=== PATIENT | female | born 1990 | race Caucasian/White ===

== ENCOUNTER 2022-04-05 10:59 | Emergency (ER) | payer MEDICAID, SELFPAY ==
[2022-04-05 11:07] VITALS: BP 129/74; PULSE 86; TEMP 36.5; O2SAT 96; BMI 32.1
--- NOTE | 2022-04-05 11:24 | ED.GENADULT ---
HPI - General Adult General Chief complaint: Unspecified Complaint, Adult Stated complaint: Jaw pain Time Seen by Provider: 04/05/22 10:59 History of Present Illness HPI narrative: This 31-year-old female comes in reporting pain in her right lower jaw. This is been present for the past week. She does not report any fevers or upper respiratory symptoms. She does not have any injury event triggering this. She did have some dental work done prior to this and was hoping that it was not a dental issue because it is difficult according to her to get in for an appointment. Related Data Home Medications Medication Instructions Recorded Confirmed No Known Home Medications 04/05/22 04/05/22 Previous Rx's Medication Instructions Recorded ketorolac 10 mg tablet 10 mg PO Q8H 5 days #15 tabs 04/05/22 methylprednisolone 4 mg tablets in See Rx Instructions PO .COMPLEX 04/05/22 a dose pack (Medrol (Niall)) #21 ea Allergies Allergy/AdvReac Type Severity Reaction Status Date / Time No Known Drug Allergies Allergy Verified 04/05/22 11:10 Review of Systems Status of ROS: Reports: 10 or more systems reviewed and unremarkable except as noted in History and below Narrative: Constitutional: No fevers, no weight gain or loss. Eyes: No discharge. No vision changes. HENT: No congestion, no sore throat, no ear pain. Right lower jaw pain. Cardiovascular: No chest pain, no palpitations. Respiratory: No shortness of breath, no wheezes, no cough. Gastrointestinal: No abdominal pain, no vomiting, no diarrhea. Genitourinary: No dysuria, no hematuria. Musculoskeletal: Normal range of motion. Skin: No rashes, no pruritis. Neurological: No dizziness, weakness, sensory change, speech change. Endo/Heme/Allergies: No bruising or bleeding. No polydipsia. Pysch: no suicidality, no anxiety, no insomnia. All other systems reviewed and are negative. PFSH PFSH Social History Smoking Status: Current every day smoker What tobacco products do you use: cigarettes Smoking packs per day: 1 Smoking cigarettes per day: 20.0 Do you use any of these nicotine containing products: None Second hand tobacco smoke exposure: No How often do you have a drink containing alcohol: never How often do you have six or more drinks on one occasion: Never AUDIT-C Alcohol total score: 0 Non-prescribed substance use: marijuana (any form) Exam Narrative: Exam Narrative: Constitutional: Well-developed, well-nourished, no acute distress. HEENT: Normocephalic, atraumatic. Tympanic membranes appear normal bilaterally. Oropharynx appears normal. Fair dentition. There is some teeth missing in the lower row that were extracted. Her right most posterior tooth in the lower row has a large cavity that was repaired. Neck: Normal range of motion. Nontender. Supple. Heart: Regular. No murmurs. Normal rate. Intact distal pulses. Lungs: Clear to auscultation. No chest discomfort. No wheezes, rhonchi, or rales. Abdomen: Normal bowel sounds. Nontender. No rebound tenderness. Genitalia: Deferred. Back: No midline tenderness. Normal range of motion. Extremities: Normal range of motion. No injury. Skin: Intact. No rash. Warm. No erythema or pallor. Neurologic: No altered sensation. No weakness. Alert and oriented. Psychiatric: No suicidality. No anxiety or depression. No insomnia. Nursing notes and vitals signs are reviewed. Const: Vital Signs, click to edit/add: Vital Signs - 24 hr 04/05/22 11:07 Temperature 97.7 F Pulse Rate [Left P ulse Oximeter] 86 Blood Pressure [Ri ght Upper Arm] 129/74 Pulse Oximetry 96 Oxygen Delivery Me thod Room Air Course Vital Signs Vital signs: Initial Vital Signs Temperature 97.7 F 04/05/22 11:07 Temperature Source Temporal Artery Scan 04/05/22 11:07 Pulse Rate 86 04/05/22 11:07 Blood Pressure 129/74 04/05/22 11:07 Blood Pressure Mean 92 04/05/22 11:07 Blood Pressure Position Sitting 04/05/22 11:07 Pulse Oximetry 96 04/05/22 11:07 Oxygen Delivery Method 04/05/22 11:07 Vital Signs Temperature 97.7 F 04/05/22 11:07 Pulse Rate 86 04/05/22 11:07 Blood Pressure 129/74 04/05/22 11:07 Pulse Oximetry 96 04/05/22 11:07 Oxygen Delivery Method 04/05/22 11:07 Temperature 97.7 F 04/05/22 11:07 Pulse Rate 86 04/05/22 11:07 Blood Pressure 129/74 04/05/22 11:07 Pulse Oximetry 96 04/05/22 11:07 Oxygen Delivery Method 04/05/22 11:07 Medical Decision Making MDM Narrative Medical decision making narrative: This patient comes in reporting pain in her right lower jaw. She does not have sign of ear infection or pharyngitis. She does not have tenderness at the temporal mandibular joint. Most likely this is a pain related to dental issue. I advised her to follow-up with a dentist for further evaluation and treatment. She did receive a prescription for Toradol and Medrol Dosepak. Discharge Plan Discharge Clinical Impression: Pain, dental Patient Disposition: Home, Self-Care Condition: Stable Additional Instructions: Take medication as needed and indicated. Follow up with MD or return if worsening. Prescriptions: New ketorolac 10 mg tablet 10 mg PO Q8H 5 Days Qty: 15 0RF methylprednisolone [Medrol (Niall)] 4 mg tablets,dose pack See Rx Instructions .ROUTE .COMPLEX Qty: 21 0RF Rx Instructions: orally per package directions No Action No Known Home Medications Stand Alone Forms: [employer] Info Instructions
--- OUTSIDE RECORDS SUMMARY | 2022-04-05 11:41 | XMS_ITS | Clinical Summary ---
:1990 Author Organization [facility] [place] [address] Care Team Providers Name Role Phone Lisa Urena Primary Care Provider Allergies No known active allergies Medications No known medications Active Problems Problem Noted Date Moderate episode of recurrent major depressive disorde r 08/22/2015 Psychophysiological insomnia 08/22/2015 Tobacco abuse 04/21/2013 Gestational diabetes 08/17/2010 Overview: Noted 2008 Panic disorder without agoraphobia with moderate panic attacks 08/17/2010 Resolved Problems Problem Noted Date Resolved Date (infant) 08/18/2010 09/04/2012 Encounters Date Type Specialty Care Team Description 04/05/2022 Nurse Triage Lisa Urena, Jaw Fran n ((R) sided jaw, ear, PA head pain) from Last 3 Months Immunizations Name Administration Dates Next Due DT (Age < 7 years) 11/07/1993, 01/23/1991 DTP 04/05/1989, 01/31/1989, 1988 HIB PRP-D (ProHIBIT) 01/23/1991 Hepatitis A (Adult) 03/17/2008 Hepatitis B (Peds) 01/13/1999, 08/11/1998, 07/11/1998 Human Papilloma Virus Vaccine 12/12/2006, 08/22/2006, 2005 Influenza, IIV3 (Age 6-35 mos) 03/08/2010 Influenza, IIV3 (Age >=3 years) 03/08/2010 Influenza, IIV4 03/05/2018, 08/05/2015, 03/19/2014 MMR 11/30/1998, 01/23/1991 Meningococcal Vaccine (Menactra) 03/17/2008 Oral Polio Vaccine 01/23/1991, 04/05/1989, 01/31/1989, 1988 Td (Age >=7 Years) 12/12/2001 Tdap 12/11/2010, 03/17/2008 Family History Medical History Relation Name Comments Good Health Brother 2 Good Health Father Diabetes Maternal Grandfather Other Maternal Grandmother , a ge 60, emphysema and alcoholism Other Mother intestinal issue s Good Health Paternal Grandfather Good Health Paternal Grandmother Good Health Son 2 Relation Name Status Comments Brother 1 Alive Brother 2 Father Alive Maternal Grandfather Alive Maternal Grandmother Mother Alive Paternal Grandfather Alive Paternal Grandmother Alive Son 1 Alive Son 2 Social History Tobacco Use Types Packs/Day Years Used Date Current Every Day Smoker Cigarettes 1 Smokeless Tobacco: Never Used Tobacco Cessation: Ready to Quit: No; Co unseling Given: Yes Alcohol Use Standard Drinks/Week Comments Yes 0 (1 standard drink = 0.6 oz pure alcoho l) rare Alcohol Habits Answer Date Recorded How often do you have a drink containing alcohol? Not asked How many drinks containing alcohol do you have on a typical Not asked day when you are drinking? How often do you have six or more drinks on one occasion? No t asked Comment: rare 03/19/2014 Sex Assigned at Date Recorded Not on file Obstetrics History Para Term AB IAB SAB Ectopic Multiple Living Live Births 1 1 Date Outcome GA Total Labor/2nd/3rd Weight Sex Delivery Anes PTL Edilia A 1 A5 Name Clin Labor Para Last Filed Vital Signs Vital Sign Reading Time Taken Comments Blood Pressure 107/72 03/05/2018 11:19 AM CDT Pulse 60 03/05/2018 11:19 AM CDT Temperature 36.7 ??C (98 ??F) 03/05/2018 11:19 AM CDT Respiratory Rate 18 01/02/2011 3:57 PM CDT Oxygen Saturation 97% 03/05/2018 11:19 AM CDT Inhaled Oxygen Concentration - - Weight 83.3 kg (183 lb 9.6 oz) 03/05/2018 11:19 AM CDT Height 165.4 cm (5' 5.12) 03/05/2018 11:19 AM CDT Body Mass Index 30.44 03/05/2018 11:19 AM CDT Plan of Treatment Health Maintenance Due Date Last Done Comments COVID-19 vaccine series (#1) 03/30/1989 Pap test for age 21-65 03/19/2017 03/19/2014, 12/11/2010 Depression screening for age 12+ 02/04/2019 02/04/2018, 02/2017, 09/01/2015, Additional history exists BMI (ht and wt on same day) for 03/05/2019 03/05/2018, 01/16, age 18+ 07/15/2017, Additional history exists Tetanus booster 12/11/2020 12/11/2010, 03/17/2008, 12/12/2001 Influenza for age 9-49 02/15/2022 03/05/2018, 08/05/2015, 03/19/2014, Additional history exists Tdap Completed 12/11/2010, 03/17/2008 Hepatitis C screening for age Completed 12/29/2012, 2012 18-79 Results Not on filefrom Last 3 Months Insurance Payer Benefit Plan / Subscriber ID Effective Dates Phone Addre ss Type Group [employer] [id number] 2017-Presen [address] [place] [id number] Larry Novoa Personal/Famil 02/14/2009 #23 y (Home) [address] [place] [address] Care Teams Mortgage Processing Manager Relationship Specialty Start Date End Date Lisa Urena PA PCP - General Family Practice 11/26/12 [address] [place] [address]
== END 2022-04-05 11:45 | disposition home or self-care (01) ==
LOC: ED 11:39
PROVIDERS: Emergency Provider Emergency Medicine Emergency Medical Services
DX: K08.89 Other specified disorders of teeth and supporting structures (principal)
CPT/HCPCS: 99282; 99284